=== PATIENT | female | born 1955 | race African-American/Black ===

== ENCOUNTER 2019-11-17 18:43 | Inpatient (IN) ==
[2019-11-17] MEDS ORDERED: AZITHROMYCIN INJ 500 MG in SODIUM CHLORIDE 0.9% 250 ML IV STA (19:25)
[2019-11-17] MEDS ORDERED: ALBUTEROL/IPRATROPIUM 3 ML NEB RESP TX STA (19:25)
[2019-11-17] MEDS ORDERED: ONDANSETRON 4 MG/2 ML VIAL IV STA (19:25)
[2019-11-17] MEDS ORDERED: FUROSEMIDE 40 MG/4 ML VIAL IV STA (19:25)
[2019-11-17] MEDS ORDERED: PIPERACILLIN/TAZOBACTAM 3,375 MG in SODIUM CHLORIDE 0.9% 100 ML IV STA (19:25)
[2019-11-17] MEDS ORDERED: methylPREDNISolone SOD SUC 125 MG/2 ML VIAL IV STA (19:25)
[2019-11-17 19:38] LABS: Basophils % 0.1 % (0.0-0.8); Hematocrit 35.5 VOL% (35.7-47.0); Hemoglobin 11.3 GM/DL (12.0-16.0); Immature Granulocytes % 0.8 %; Immature Granulocytes Absolute 0.06 #; Lymphocytes # 0.7 10*3/uL (1.4-4.0); Lymphocytes % 8.7 % (21.3-54.2); Mean Corpuscular HGB Conc 31.8 GM/DL (32-36); Mean Corpuscular Volume 89.4 FL (87-102); Neutrophils % 83.4 % (38.7-73.9); Platelet Count 177 T/CUMM (130-400); Red Blood Count 3.97 MC/CUMM (3.8-5.5); White Blood Count 7.6 T/CUMM (4-12)
[2019-11-17 19:45] LABS: PT Patient Result 10.7 SECS (9.8-11.9)
[2019-11-17 19:49] LABS: Alanine Aminotransferase 30 U/L (13-56); Albumin 2.9 G/DL (3.4-5.0); Alkaline Phosphatase 58 U/L (45-117); Aspartate Amino Transferase 47 U/L (0-37); Blood Urea Nitrogen 18 MG/DL (7-18); Calcium 8.9 MG/DL (8.5-10.1); Estimated Glom Filtration Rate 53 ML/MIN; Ferritin 637.9 ng/ml (8-252); Glucose 195 MG/DL (74-106); Osmolality,Calculated 270.5 MOS/KG (273-304); Total Protein 8.1 G/DL (6.4-8.3); Troponin I < 0.015 NG/ML (0.00-0.045)
[2019-11-17] MEDS: ALBUTEROL INHALER 18 GM INH SCH ×2 (19:51→23:30)
[2019-11-17] MEDS ORDERED: guaiFENesin/DM ER 600-30 MG TABLET PO PRN (21:31)
[2019-11-17] MEDS ORDERED: ZALEPLON 5 MG CAPSULE PO PRN (21:31)
[2019-11-17] MEDS ORDERED: ALUMINUM/MAGNES/SIMETH MAX STR 30 ML UDCUP PO PRN (21:31)
[2019-11-17] MEDS ORDERED: hydrALAZINE 20 MG/1 ML VIAL IV PRN (21:31)
[2019-11-17] MEDS ORDERED: ONDANSETRON 4 MG/2 ML VIAL IV PRN (21:31)
[2019-11-17] MEDS ORDERED: NICOTINE 21 MG/24 HR PATCH TRANSDERM PRN (21:31)
[2019-11-17] MEDS ORDERED: diphenhydrAMINE CAP 25 MG CAPSULE PO PRN (21:31)
[2019-11-17] MEDS ORDERED: ACETAMINOPHEN 325 MG TABLET PO PRN (21:31)
[2019-11-17] MEDS ORDERED: GLUCAGON 1 MG VIAL IM PRN (21:31)
[2019-11-17] MEDS ORDERED: DEXTROSE 10% 250 ML BAG IV PRN (21:43)
[2019-11-17 21:50] LABS: Apearance,Urine CLEAR (Clear); Bilirubin,Urine Negative (Negative); Blood, Urine Small mg/dL (Negative); Glucose,Urine (UA) Negative (Negative); Hyaline Casts,Urine 7 /LPF (0-3); Ketones,Urine Negative (Negative); Nitrite,Urine Negative (Negative); Protein,Urine Negative; RBC,Urine 4 /HPF (0-4); Squamous Epithelial Cell,Urine Occasional /HPF (0-10); Urine Color Straw (Yellow); Urine Specific Gravity 1.015 (1.001-1.035); Urine Urobilinogen < 2.0 EU/DL (0.2-1.0); WBC,Urine 3 /HPF (0-6)
[2019-11-17 22:11] LABS: ABG Base Excess 0.1 MMOL/L (-2.5-2.5); ABG HCO3 24.4 MMOL/L (20-26); ABG Oxygen Saturation 94.7 % (95-100); ABG PCO2 43.2 MM HG (35-48); ABG PH 7.377 (7.35-7.45); ABG PO2 77.7 MM HG (80-95); ABG TCO2 22.8 MMOL/L (23-27)
[2019-11-17] MEDS: cefTRIAXone 1,000 MG in SYRINGE 1 EACH IV SCH (23:30)
[2019-11-17] MEDS: methylPREDNISolone SOD SUC 40 MG/1 ML VIAL IV SCH (23:56)
[2019-11-18] MEDS ORDERED: ALBUTEROL/IPRATROPIUM 3 ML NEB RESP TX ONE (02:37)
[2019-11-18] MEDS: ALBUTEROL INHALER 18 GM INH SCH ×6 (04:31→23:25)
[2019-11-18] MEDS ORDERED: MAGNESIUM SULF RIDER 2 GM in PREMIX 1 EACH IV PRN (07:28)
[2019-11-18] MEDS ORDERED: MAGNESIUM SULF RIDER 4 GM in PREMIX 1 EACH IV PRN (07:28)
[2019-11-18] MEDS: AZITHROMYCIN 250 MG TABLET PO SCH (09:15)
[2019-11-18] MEDS: methylPREDNISolone SOD SUC 40 MG/1 ML VIAL IV SCH ×2 (09:15→22:52)
[2019-11-18] MEDS: ENOXAPARIN 40 MG/0.4 ML SYRINGE SUBCUT SCH (09:15)
[2019-11-18] MEDS: cefTRIAXone 1,000 MG in SYRINGE 1 EACH IV SCH (22:52)
[2019-11-19] MEDS: ALBUTEROL INHALER 18 GM INH SCH ×6 (03:47→22:59)
[2019-11-19 06:05] LABS: Basophils % 0.1 % (0.0-0.8); Hematocrit 34.3 VOL% (35.7-47.0); Immature Granulocytes % 1.4 %; Immature Granulocytes Absolute 0.17 #; Lymphocytes # 0.7 10*3/uL (1.4-4.0); Lymphocytes % 6.2 % (21.3-54.2); Mean Corpuscular HGB Conc 32.1 GM/DL (32-36); Mean Corpuscular Volume 87.3 FL (87-102); Mean Platelet Volume 10.8 FL (9.6-12.0); Monocytes % 5.2 % (1.7-12.7); Neutrophils % 87.1 % (38.7-73.9); Platelet Count 244 T/CUMM (130-400); Red Blood Count 3.93 MC/CUMM (3.8-5.5); Red Cell Distribution Width 14.2 % (9.3-17.3); White Blood Count 11.7 T/CUMM (4-12)
[2019-11-19 06:22] LABS: Calcium 8.8 MG/DL (8.5-10.1)
[2019-11-19 06:32] LABS: Band Neutrophils 4 % (0-10); Hypochromasia 1+; Lymphocytes 4 % (20-55); Microcytosis Slight; Segmented Neutrophils 87 % (50-85); Total Cells Counted 100
[2019-11-19 06:33] LABS: Platelet Estimate Normal
[2019-11-19] MEDS: ENOXAPARIN 40 MG/0.4 ML SYRINGE SUBCUT SCH (08:00)
[2019-11-19] MEDS: AZITHROMYCIN 250 MG TABLET PO SCH (08:00)
[2019-11-19] MEDS: methylPREDNISolone SOD SUC 40 MG/1 ML VIAL IV SCH ×2 (11:11→22:01)
[2019-11-19] MEDS: cefTRIAXone 1,000 MG in SYRINGE 1 EACH IV SCH (20:45)
[2019-11-19] MEDS: BENZTROPINE 0.5 MG TABLET PO SCH (21:05)
[2019-11-19] MEDS: ZIPRASIDONE 20 MG CAPSULE PO SCH (21:05)
[2019-11-20] MEDS: ALBUTEROL INHALER 18 GM INH SCH ×5 (03:58→21:00)
[2019-11-20 06:37] LABS: Basophils % 0.1 % (0.0-0.8); Hematocrit 35.2 VOL% (35.7-47.0); Hemoglobin 11.1 GM/DL (12.0-16.0); Immature Granulocytes % 1.3 %; Immature Granulocytes Absolute 0.16 #; Lymphocytes # 0.7 10*3/uL (1.4-4.0); Lymphocytes % 5.7 % (21.3-54.2); Mean Corpuscular HGB Conc 31.5 GM/DL (32-36); Mean Corpuscular Volume 88.9 FL (87-102); Mean Platelet Volume 10.6 FL (9.6-12.0); Monocytes % 4.5 % (1.7-12.7); Neutrophils % 88.4 % (38.7-73.9); Platelet Count 255 T/CUMM (130-400); Red Blood Count 3.96 MC/CUMM (3.8-5.5); Red Cell Distribution Width 14.5 % (9.3-17.3); White Blood Count 12.1 T/CUMM (4-12)
[2019-11-20 07:05] LABS: Hypochromasia 1+
[2019-11-20 07:06] LABS: Microcytosis Slight; Platelet Estimate Adequate
[2019-11-20] MEDS: ASPIRIN EC 81 MG TABLET PO SCH (08:51)
[2019-11-20] MEDS: DOXYCYCLINE HYCLATE 100 MG CAPSULE PO SCH ×2 (08:51→17:17)
[2019-11-20] MEDS: BENZTROPINE 0.5 MG TABLET PO SCH ×2 (08:51→21:00)
[2019-11-20] MEDS: FLUTICASONE 50 MCG NASAL SPRAY 16 GM BOTTLE BOTH NARES SCH (08:51)
[2019-11-20] MEDS ORDERED: CITALOPRAM 20 MG TABLET PO SCH (09:00)
[2019-11-20] MEDS ORDERED: FLUTICASONE 50 MCG NASAL SPRAY 16 GM BOTTLE BOTH NARES SCH (09:00)
[2019-11-20] MEDS: ZIPRASIDONE 20 MG CAPSULE PO SCH ×2 (10:21→21:00)
[2019-11-20] MEDS: methylPREDNISolone SOD SUC 40 MG/1 ML VIAL IV SCH ×2 (10:22→21:55)
[2019-11-20] MEDS: ENOXAPARIN 40 MG/0.4 ML SYRINGE SUBCUT SCH (10:22)
[2019-11-20 14:56] LABS: Calcium 9.4 MG/DL (8.5-10.1); Osmolality,Calculated 289.8 MOS/KG (273-304)
[2019-11-20] MEDS: cefTRIAXone 1,000 MG in SYRINGE 1 EACH IV SCH (21:56)
[2019-11-21] MEDS: ALBUTEROL INHALER 18 GM INH SCH ×6 (01:07→21:20)
[2019-11-21 05:28] LABS: Basophils % 0.2 % (0.0-0.8); Hematocrit 35.9 VOL% (35.7-47.0); Hemoglobin 11.6 GM/DL (12.0-16.0); Immature Granulocytes % 4.4 %; Immature Granulocytes Absolute 0.39 #; Lymphocytes # 0.9 10*3/uL (1.4-4.0); Lymphocytes % 9.6 % (21.3-54.2); Mean Corpuscular HGB Conc 32.3 GM/DL (32-36); Mean Corpuscular Volume 87.6 FL (87-102); Mean Platelet Volume 10.7 FL (9.6-12.0); Monocytes % 5.1 % (1.7-12.7); NRBC # 0.02 10*3/uL; Neutrophils % 80.7 % (38.7-73.9); Platelet Count 264 T/CUMM (130-400); Red Cell Distribution Width 14.5 % (9.3-17.3); White Blood Count 8.9 T/CUMM (4-12)
[2019-11-21 05:54] LABS: Calcium 8.9 MG/DL (8.5-10.1); Osmolality,Calculated 299.4 MOS/KG (273-304)
[2019-11-21 05:55] LABS: Band Neutrophils 1 % (0-10); Hypochromasia 1+; Lymphocytes 10 % (20-55); Platelet Estimate Adequate; Segmented Neutrophils 87 % (50-85); Total Cells Counted 100
[2019-11-21 05:56] LABS: Microcytosis Slight
[2019-11-21] MEDS: FLUTICASONE 50 MCG NASAL SPRAY 16 GM BOTTLE BOTH NARES SCH (09:15)
[2019-11-21] MEDS: BENZTROPINE 0.5 MG TABLET PO SCH ×2 (09:15→21:20)
[2019-11-21] MEDS: ASPIRIN EC 81 MG TABLET PO SCH (09:15)
[2019-11-21] MEDS: DOXYCYCLINE HYCLATE 100 MG CAPSULE PO SCH ×2 (09:15→16:57)
[2019-11-21] MEDS: methylPREDNISolone SOD SUC 40 MG/1 ML VIAL IV SCH ×2 (09:19→22:04)
[2019-11-21] MEDS: ZIPRASIDONE 20 MG CAPSULE PO SCH ×2 (09:19→21:20)
[2019-11-21] MEDS: ENOXAPARIN 40 MG/0.4 ML SYRINGE SUBCUT SCH (09:19)
[2019-11-21] MEDS ORDERED: DEXTROSE 50% 25 GM/50 ML VIAL IV PRN (13:41)
[2019-11-21] MEDS: LISINOPRIL/HCTZ 10-12.5 MG TABLET PO SCH (15:51)
[2019-11-21] MEDS ORDERED: INSULIN NPH 100 UNIT/ML SUBCUT SCH (16:30)
[2019-11-21] MEDS: INSULIN REGULAR 100 UNIT/ML SUBCUT SCH ×2 (16:56→22:45)
[2019-11-21] MEDS: cefTRIAXone 1,000 MG in SYRINGE 1 EACH IV SCH (22:04)
[2019-11-22] MEDS: ALBUTEROL INHALER 18 GM INH SCH ×6 (04:48→23:32)
[2019-11-22 05:08] LABS: Basophils % 0.3 % (0.0-0.8); Hematocrit 37.2 VOL% (35.7-47.0); Hemoglobin 11.7 GM/DL (12.0-16.0); Immature Granulocytes % 1.9 %; Immature Granulocytes Absolute 0.15 #; Lymphocytes # 0.8 10*3/uL (1.4-4.0); Lymphocytes % 10.2 % (21.3-54.2); Mean Corpuscular HGB Conc 31.5 GM/DL (32-36); Mean Platelet Volume 10.5 FL (9.6-12.0); Monocytes % 5.6 % (1.7-12.7); NRBC # 0.03 10*3/uL; Platelet Count 315 T/CUMM (130-400); Red Blood Count 4.18 MC/CUMM (3.8-5.5); Red Cell Distribution Width 14.4 % (9.3-17.3); White Blood Count 7.9 T/CUMM (4-12)
[2019-11-22 05:28] LABS: Calcium 9.2 MG/DL (8.5-10.1); Osmolality,Calculated 291.5 MOS/KG (273-304)
[2019-11-22 05:39] LABS: Lymphocytes 16 % (20-55); Platelet Estimate Adequate; Segmented Neutrophils 73 % (50-85); Total Cells Counted 100
[2019-11-22 05:40] LABS: Hypochromasia 1+; Microcytosis Slight; Ovalocytes Slight
[2019-11-22] MEDS: INSULIN REGULAR 100 UNIT/ML SUBCUT SCH ×4 (08:48→23:28)
[2019-11-22] MEDS: ENOXAPARIN 40 MG/0.4 ML SYRINGE SUBCUT SCH (08:48)
[2019-11-22] MEDS: BENZTROPINE 0.5 MG TABLET PO SCH ×2 (08:49→23:17)
[2019-11-22] MEDS: DOXYCYCLINE HYCLATE 100 MG CAPSULE PO SCH ×2 (08:49→16:31)
[2019-11-22] MEDS: ASPIRIN EC 81 MG TABLET PO SCH (08:49)
[2019-11-22] MEDS: FLUTICASONE 50 MCG NASAL SPRAY 16 GM BOTTLE BOTH NARES SCH (08:49)
[2019-11-22] MEDS: LISINOPRIL/HCTZ 10-12.5 MG TABLET PO SCH (08:49)
[2019-11-22] MEDS: ZIPRASIDONE 20 MG CAPSULE PO SCH ×2 (08:50→23:16)
[2019-11-22] MEDS: methylPREDNISolone SOD SUC 40 MG/1 ML VIAL IV SCH ×2 (10:13→23:10)
[2019-11-22] MEDS: cefTRIAXone 1,000 MG in SYRINGE 1 EACH IV SCH (23:15)
[2019-11-22] MEDS: ENOXAPARIN 60 MG/0.6 ML SYRINGE SUBCUT SCH (23:19)
[2019-11-23] MEDS: ALBUTEROL INHALER 18 GM INH SCH ×2 (03:43→08:30)
[2019-11-23 05:40] LABS: Basophils % 0.1 % (0.0-0.8); Hematocrit 39.5 VOL% (35.7-47.0); Hemoglobin 12.5 GM/DL (12.0-16.0); Immature Granulocytes % 1.3 %; Immature Granulocytes Absolute 0.12 #; Lymphocytes # 0.7 10*3/uL (1.4-4.0); Lymphocytes % 7.9 % (21.3-54.2); Mean Corpuscular HGB Conc 31.6 GM/DL (32-36); Mean Platelet Volume 10.3 FL (9.6-12.0); Monocytes % 4.9 % (1.7-12.7); NRBC # 0.03 10*3/uL; Neutrophils % 85.8 % (38.7-73.9); Platelet Count 369 T/CUMM (130-400); Red Blood Count 4.44 MC/CUMM (3.8-5.5); Red Cell Distribution Width 14.2 % (9.3-17.3)
[2019-11-23 06:27] LABS: Osmolality,Calculated 288.7 MOS/KG (273-304)
[2019-11-23] MEDS: INSULIN REGULAR 100 UNIT/ML SUBCUT SCH ×2 (08:30→12:30)
[2019-11-23] MEDS: ASPIRIN EC 81 MG TABLET PO SCH (08:31)
[2019-11-23] MEDS: LISINOPRIL/HCTZ 10-12.5 MG TABLET PO SCH (08:31)
[2019-11-23] MEDS: ZIPRASIDONE 20 MG CAPSULE PO SCH (08:31)
[2019-11-23] MEDS: ENOXAPARIN 60 MG/0.6 ML SYRINGE SUBCUT SCH (08:31)
[2019-11-23] MEDS: DOXYCYCLINE HYCLATE 100 MG CAPSULE PO SCH (08:31)
[2019-11-23] MEDS: FLUTICASONE 50 MCG NASAL SPRAY 16 GM BOTTLE BOTH NARES SCH (08:31)
[2019-11-23] MEDS: BENZTROPINE 0.5 MG TABLET PO SCH (08:31)
[2019-11-23] MEDS: methylPREDNISolone SOD SUC 40 MG/1 ML VIAL IV SCH (10:24)
[2019-11-23 11:59] VITALS: BP 139/86
[2019-11-23] MEDS: cefTRIAXone 1,000 MG in SYRINGE 1 EACH IV SCH (12:30)
== END 2019-11-23 13:43 | disposition home or self-care (01) | DRG 137 ==
LOC: N.ED 18:43 → N.EDINP 21:31 → SUATTDRO 21:31 → N.EDINP 23:48 → N.2E 23:58
PROVIDERS: ADMIT Internal Medicine; ATTEND Internal Medicine Cardiovascular Disease